=== PATIENT | female | born 1955 | race Caucasian/White ===

== ENCOUNTER 2021-07-03 14:14 | Inpatient (IN) | payer OTHER ==
[~2021-07-03] VITALS: Ht 152.4 cm; Wt 84.0 kg
[~2021-07-03 14:14] MED LIST: ATORVASTATIN CA80 MG PO; BUPROPION XL150 MG PO; COMBIVENT RESPIM4 GM INH; COZAAR100 MG PO; ECOTRIN325 MG PO; ESBRIET267 MG PO; HUMALOG MI100 UNIT/4 SQ; LEVOFLOXACIN250 MG PO; LOVAZA1 GM PO; METFORMIN HCL500 M2 PO; MYCOSTATIN100000 UTS PO; OMEPRAZOLE40 MG PO; PREDNISONE 10 M10 MG PO; PREDNISONE5 MG PO; SYMBICORT 80-10.2 GM INH; TOPROL XL100 MG PO; VENTOLIN HFA 66.7 GM INH
[2021-07-03 15:28] LABS: HEMOGLOBIN 12.4 gm/dl (12.3-15.3); RED BLOOD COUNT 4.28 M/UL (4.00-5.10); WHITE BLOOD COUNT 11.8 K/UL (4.5-11.0)
[2021-07-03] MEDS ORDERED: MUCUS RELIEF1200 MG PO (17:59)
[2021-07-03] MEDS ORDERED: NORVASC5 MG PO (17:59)
[2021-07-03] MEDS ORDERED: DEXAMETHASONE6 MG PO (17:59)
[2021-07-03] MEDS ORDERED: ZETIA10 MG PO (18:00)
[2021-07-03] MEDS ORDERED: HUMALOG MI100 UNITS/ SQ (18:01)
[2021-07-03] MEDS ORDERED: NITROGLYCERIN0.4 MG SL (18:02)
[2021-07-03] MEDS ORDERED: IPRAT-ALBUT 0.5-3 ML INH (18:02)
[2021-07-03] MEDS ORDERED: ANORO ELLIPTA1 EACH INH (18:03)
[2021-07-03] MEDS ORDERED: ASPIRIN EC81 MG PO (18:03)
[2021-07-04 09:55] LABS: HEMOGLOBIN 12.3 gm/dl (12.3-15.3); RED BLOOD COUNT 4.31 M/UL (4.00-5.10)
[2021-07-04 09:57] LABS: WHITE BLOOD COUNT 7.7 K/UL (4.5-11.0)
[2021-07-04] MEDS ORDERED: FOSAMAX70 MG PO (17:01)
[2021-07-05 05:59] LABS: WHITE BLOOD COUNT 8.5 K/UL (4.5-11.0)
[2021-07-05 06:05] LABS: RED BLOOD COUNT 4.92 M/UL (4.00-5.10)
[2021-07-06 05:51] LABS: RED BLOOD COUNT 4.88 M/UL (4.00-5.10)
[2021-07-06 05:52] LABS: WHITE BLOOD COUNT 16.1 K/UL (4.5-11.0)
[2021-07-07 06:13] LABS: HEMOGLOBIN 13.4 gm/dl (12.3-15.3); RED BLOOD COUNT 4.79 M/UL (4.00-5.10); WHITE BLOOD COUNT 16.2 K/UL (4.5-11.0)
[2021-07-08 05:21] LABS: HEMOGLOBIN 13.1 gm/dl (12.3-15.3); RED BLOOD COUNT 4.7 M/UL (4.00-5.10); WHITE BLOOD COUNT 18.8 K/UL (4.5-11.0)
[2021-07-09 05:40] LABS: HEMOGLOBIN 13.1 gm/dl (12.3-15.3); RED BLOOD COUNT 4.65 M/UL (4.00-5.10); WHITE BLOOD COUNT 19.9 K/UL (4.5-11.0)
[2021-07-10 05:29] LABS: HEMOGLOBIN 12.7 gm/dl (12.3-15.3); RED BLOOD COUNT 4.43 M/UL (4.00-5.10); WHITE BLOOD COUNT 22.1 K/UL (4.5-11.0)
[2021-07-11 05:47] LABS: HEMOGLOBIN 11.9 gm/dl (12.3-15.3); RED BLOOD COUNT 4.07 M/UL (4.00-5.10)
[2021-07-12 05:14] LABS: WHITE BLOOD COUNT 15.1 K/UL (4.5-11.0)
[2021-07-12 05:17] LABS: HEMOGLOBIN 9.6 gm/dl (12.3-15.3); RED BLOOD COUNT 3.3 M/UL (4.00-5.10)
[2021-07-12 12:14] LABS: ORGANISM ID Not indicated. (.); SPECIMEN SOURCE Urine (.); STREPTOCOCCUS PNEUMONIAE AG Negative (Negative)
== END 2021-07-12 17:17 | disposition expired | DRG 208 ==
LOC: ER1 14:14 → CDU 16:53 → CCU 16:53
PROVIDERS: Emergency Medicine; Internal Medicine; Internal Medicine Nephrology; Internal Medicine Pulmonary Disease; ADMIT Internal Medicine
PROC: 8E0ZXY6 Isolation (ICD-10-PCS; principal; 2021-07-03)
PROC: XW033E5 Introduction of Remdesivir Anti-infective into Peripheral Vein, Percutaneous Approach, New Technology Group 5 (ICD-10-PCS; 2021-07-03)
PROC: 3E0333Z Introduction of Anti-inflammatory into Peripheral Vein, Percutaneous Approach (ICD-10-PCS; 2021-07-03)
PROC: 5A09557 Assistance with Respiratory Ventilation, Greater than 96 Consecutive Hours, Continuous Positive Airway Pressure (ICD-10-PCS; 2021-07-03)
PROC: XW033H5 Introduction of Tocilizumab into Peripheral Vein, Percutaneous Approach, New Technology Group 5 (ICD-10-PCS; 2021-07-03)
PROC: 5A1945Z Respiratory Ventilation, 24-96 Consecutive Hours (ICD-10-PCS; 2021-07-09)
PROC: 0BH17EZ Insertion of Endotracheal Airway into Trachea, Via Natural or Artificial Opening (ICD-10-PCS; 2021-07-09)
PROC: 3E033XZ Introduction of Vasopressor into Peripheral Vein, Percutaneous Approach (ICD-10-PCS; 2021-07-11)
DX: U07.1 COVID-19 (principal); J12.82 Pneumonia due to coronavirus disease 2019; A41.89 Other specified sepsis; R65.21 Severe sepsis with septic shock; N17.0 Acute kidney failure with tubular necrosis; J15.9 Unspecified bacterial pneumonia; J96.21 Acute and chronic respiratory failure with hypoxia; J96.22 Acute and chronic respiratory failure with hypercapnia; I50.33 Acute on chronic diastolic (congestive) heart failure; J44.0 Chronic obstructive pulmonary disease with (acute) lower respiratory infection; J44.1 Chronic obstructive pulmonary disease with (acute) exacerbation; E87.2 Acidosis; E87.1 Hypo-osmolality and hyponatremia; I46.8 Cardiac arrest due to other underlying condition; Z66 Do not resuscitate; J84.112 Idiopathic pulmonary fibrosis; E78.5 Hyperlipidemia, unspecified; E66.9 Obesity, unspecified; I25.10 Atherosclerotic heart disease of native coronary artery without angina pectoris; E11.65 Type 2 diabetes mellitus with hyperglycemia; T38.0X5A Adverse effect of glucocorticoids and synthetic analogues, initial encounter; E87.5 Hyperkalemia; Z51.5 Encounter for palliative care; I11.0 Hypertensive heart disease with heart failure; Z95.1 Presence of aortocoronary bypass graft; Z90.89 Acquired absence of other organs; Z90.710 Acquired absence of both cervix and uterus; Z88.8 Allergy status to other drugs, medicaments and biological substances; Z95.5 Presence of coronary angioplasty implant and graft; Z79.52 Long term (current) use of systemic steroids; Z79.82 Long term (current) use of aspirin; Z82.49 Family history of ischemic heart disease and other diseases of the circulatory system; Z87.891 Personal history of nicotine dependence; Z79.84 Long term (current) use of oral hypoglycemic drugs; Z23 Encounter for immunization; Z68.30 Body mass index [BMI] 30.0-30.9, adult
CPT/HCPCS: 0240U; 31500; 36415; 36600; 71045; 80048; 80053; 80202; 81001; 82550; 82553; 82570; 82728; 82803; 82962; 83036; 83540; 83550; 83605; 83615; 83735; 83874; 83880; 84100; 84132; 84133; 84156; 84300; 84484; 85025; 85027; 85379; 85384; 85652; 86140; 87040; 87081; 87899; 89050; 93005; 94002; 94003; 94640; 94660; 94664; 94760; 96365; 96375; 96376; 99285; C9113; G0378; J0248; J0696; J1100; J1644; J1650; J1940; J2185; J2250; J2370; J2704; J2760; J3010; J3370; J7030; J7042; J7050; J7070; P9047; Q0249; Q9967